=== PATIENT | male | born 1980 ===

== ENCOUNTER 2016-05-22 17:41 | Emergency (ER) | payer OTHER ==
[2016-05-22 17:46] VITALS: BP 136/73; PULSE 72; RESP 18; TEMP 97.9; O2SAT 99
--- NOTE | 2016-05-22 18:41 | C.PDOC ---
History Of Present Illness L LEG PAIN X 2 WEEKS. NO TRAUMA. CO SWELLING INSIDE OF L KNEE X 5 DAYS. WORSE W HYPERFLEX. ALSO PAIN TO L GROIN/TEST AREA. NO RASH, SWELL, UTI SX, FEVER NV. HO L SCROTAL VARICOCELE SURGERY EXAM NAD NEG HERNIA, SCROTAL SWELL, LESIONS. EXT POSSIBLE PHLEBITIS VS PALP CORD L MEDIAL KNEE/DISTAL THIGH NO ERYTHEMA; NO THIGH SWELL MDM ADVISED RETURN TOMORROW FOR DVT STUDY. LOVENOX, NSAID, Time Seen by Provider: 05/22/16 18:02 Chief Complaint (Nursing): Lower Extremity Problem/Injury History Per: Patient History/Exam Limitations: no limitations Onset/Duration Of Symptoms: Days Current Symptoms Are (Timing): Still Present Recent travel outside of the [place]: No Past Medical History Reviewed: Historical Data, Nursing Documentation, Vital Signs Vital Signs: Last Vital Signs Temp 97.9 F 05/22/16 17:44 Pulse 72 05/22/16 17:44 Resp 18 05/22/16 17:44 BP 136/73 05/22/16 17:44 Pulse Ox 99 05/22/16 18:45 - Medical History PMH: No Chronic Diseases Family History: States: Unknown Family Hx - Social History Hx Alcohol Use: No Hx Substance Use: No Review Of Systems Except As Marked, All Systems Reviewed And Found Negative. Constitutional: Negative for: Fever, Chills Cardiovascular: Negative for: Chest Pain Respiratory: Negative for: Cough, Shortness of Breath, Wheezing Musculoskeletal: Positive for: Leg Pain (LEFT) Skin: Negative for: Rash Neurological: Negative for: Weakness, Numbness Physical Exam - Physical Exam Appears: Non-toxic, No Acute Distress Skin: Normal Color, Warm, Dry Head: Atraumatic, Normacephalic Chest: Symmetrical Cardiovascular: Rhythm Regular, No Murmur Respiratory: Normal Breath Sounds, No Rales, No Rhonchi, No Wheezing Male Genital: Other (NEG HERNIA, SCROTAL SWELL, LESIONS.) Extremity: Normal ROM, Capillary Refill (< 2 SEC. ), No Deformity, Other (EXT POSSIBLE PHLEBITIS VS PALP CORD L MEDIAL KNEE/DISTAL THIGH NO ERYTHEMA; NO THIGH SWELL) Neurological/Psych: Oriented x3, Normal Speech, Normal Cognition, Normal Motor, Normal Sensation Gait: Steady ED Course And Treatment O2 Sat by Pulse Oximetry: 99 (RA) Pulse Ox Interpretation: Normal Medical Decision Making Medical Decision Making: ADVISED RETURN TOMORROW FOR DVT STUDY. LOVENOX, NSAID, Disposition Counseled Patient/Family Regarding: Diagnosis, Need For Followup - Disposition [facility]errals: [facility] [Outside] [facility] [Outside] [facility] [Provider Group] Disposition: HOME/ ROUTINE Disposition Time: 18:41 Condition: IMPROVED Additional Instructions: VUELVE A MAANA PARA EL ESTUDIO DE DOPPLER PARA POSIBLES PIERNAS DE DANIEL DE PIERNA. HELADO A LA GEENA AFECTADA, MADELINE MOTRIN SEGN LO DIRIGIDO. Prescriptions: Ibuprofen [Motrin] 600 mg PO Q6 #30 tab Instructions: Superficial Thrombophlebitis (ED), Deep Venous Thrombosis (ED), Groin Strain (ED) Forms: Work Excuse Print Language: URUGUAYAN - Clinical Impression Clinical Impression: Thigh pain, Groin pain - Scribe Statement The provider has reviewed the documentation as recorded by the Meg Del Rio Provider Attestation: All medical record entries made by the Meg were at my direction and personally dictated by me. I have reviewed the chart and agree that the record accurately reflects my personal performance of the history, physical exam, medical decision making, and the department course for this patient. I have also personally directed, reviewed, and agree with the discharge instructions and disposition.
[2016-05-22] MEDS ORDERED: Enoxaparin 40 mg Syringe SC STA (18:45)
[2016-05-22] MEDS ORDERED: Enoxaparin 80 mg Syringe ONE (18:48)
== END 2016-05-22 19:01 | disposition home or self-care (01) ==
LOC: C.ER 17:41
DX: M79.652 Pain in left thigh (principal); R10.32 Left lower quadrant pain

== ENCOUNTER 2016-05-23 09:01 | Emergency (ER) | payer OTHER ==
[2016-05-23 09:33] VITALS: TEMP 98; O2SAT 98
--- NOTE | 2016-05-23 09:51 | C.PDOC ---
History Of Present Illness 35 year old male presents to the ED for a venous doppler exam. Patient states he came last night due to several days of left leg pain and was diagnosed with a superficial phlebitis. He was advised to return for the doppler exam and has no new complaints at this time. Time Seen by Provider: 05/23/16 09:50 Chief Complaint (Nursing): Medical Clearance History Per: Patient History/Exam Limitations: no limitations Onset/Duration Of Symptoms: Days Current Symptoms Are (Timing): Still Present Severity: Mild Past Medical History Reviewed: Historical Data, Nursing Documentation, Vital Signs Vital Signs: Last Vital Signs Temp 98 F 05/23/16 09:30 Pulse 71 05/23/16 11:09 Resp 18 05/23/16 11:09 BP 128/75 05/23/16 11:09 Pulse Ox 98 05/23/16 13:19 - Medical History PMH: No Chronic Diseases Family History: States: Unknown Family Hx - Social History Hx Alcohol Use: No Hx Substance Use: No Review Of Systems Except As Marked, All Systems Reviewed And Found Negative. Constitutional: Negative for: Fever, Chills Musculoskeletal: Positive for: Leg Pain (+Left leg pain). Negative for: Back Pain Skin: Negative for: Rash Neurological: Negative for: Weakness, Numbness Physical Exam - Physical Exam Appears: Non-toxic, No Acute Distress Skin: Normal Color, Warm, Dry Extremity: Normal ROM, No Calf Tenderness, Capillary Refill (< 2 seconds), No Deformity, Swelling (+Slight swelling to the left leg with a palpable cord to the medial aspect of the left knee.) Pulses: Left Dorsalis Pedis: Normal, Right Dorsalis Pedis: Normal Neurological/Psych: Oriented x3, Normal Speech, Normal Cognition, Normal Motor, Normal Sensation ED Course And Treatment O2 Sat by Pulse Oximetry: 98 (Room air) Pulse Ox Interpretation: Normal - Other Rad Venous Duplex Scan X-Ray: Viewed By Me, Read By Radiologist Interpretation: IMPRESSION: No evidence of deep or superficial vein thrombosis of the left lower extremity with excellent venous flow. Normal valve function noted of the left side. Normal venous flow noted in the right common femoral vein. Progress Note: Venous Duplex Scan ordered and reviewed. Medical Decision Making Medical Decision Making: Results discusse with pt Plan nsaid clinic f/u Disposition Counseled Patient/Family Regarding: Diagnosis, Need For Followup - Disposition Referrals: [facility] [Outside] Disposition: HOME/ ROUTINE Disposition Time: 10:59 Condition: GOOD Additional Instructions: Start taking the ibuprofen Warm compress to the area Instructions: Superficial Thrombophlebitis (ED) - Clinical Impression Clinical Impression: Superficial phlebitis - Scribe Statement The provider has reviewed the documentation as recorded by the Scribe Linda Portillo. Provider Attestation: All medical record entries made by the Scribe were at my direction and personally dictated by me. I have reviewed the chart and agree that the record accurately reflects my personal performance of the history, physical exam, medical decision making, and the department course for this patient. I have also personally directed, reviewed, and agree with the discharge instructions and disposition.
[2016-05-23 11:10] VITALS: BP 128/75; PULSE 71; RESP 18
--- NOTE | 2016-05-23 11:37 | VASCLAB ---
PROCEDURE: Left Lower Extremity Venous Duplex Exam. HISTORY: Pain and swelling PRIORS: None. TECHNIQUE: Left common femoral, femoral, popliteal and posterior tibial, peroneal and great saphenous veins were evaluated. Flow was assessed with color Doppler, compressibility, assessment of phasic flow and augmentation response. Report prepared by AMIRAH Willis FINDINGS: LEFT: 1. Common Femoral Vein: 1.1. Compressibility - Fully compressible: Thrombus - None : Flow - Phasic: Augmentation -Normal: Reflux - None. 2. Femoral Vein: 2.1. Compressibility - Fully compressible: Thrombus - None: Flow - Phasic: Augmentation -Normal: Reflux - None. 3. Popliteal Vein: 3.1. Compressibility - Fully compressible: Thrombus - None: Flow - Phasic: Augmentation -Normal: Reflux - None. 4. Posterior Tibial Vein: 4.1. Compressibility - Fully compressible: Thrombus - None: Flow - Phasic: Augmentation -Normal: Reflux - None. 5. Peroneal Vein: 5.1. Compressibility - Fully compressible: Thrombus - None: Flow - Phasic: Augmentation -Normal: Reflux - None. 6. Great Saphenous Vein: 6.1. Compressibility - Fully compressible: Thrombus - None: Flow - Phasic: Augmentation - Normal: Reflux - None. OTHER FINDINGS: IMPRESSION: No evidence of deep or superficial vein thrombosis of the left lower extremity with excellent venous flow. Normal valve function noted of the left side. Normal venous flow noted in the right common femoral vein.
== END 2016-05-23 11:15 | disposition home or self-care (01) ==
LOC: C.ER 09:01
DX: I80.02 Phlebitis and thrombophlebitis of superficial vessels of left lower extremity (principal)

== ENCOUNTER 2018-03-09 20:02 | Emergency (ER) | payer BC, OTHER ==
[2018-03-09 20:18] VITALS: RESP 18
--- NOTE | 2018-03-09 20:35 | C.PDOC ---
History Of Present Illness 37 year old male presents to the ER with a complaint of left testicular pain that radiates to LLQ and left CVA. Patient states the pain began gradually at [id number] this morning and worsened tonight. He reports Hx of varicocele surgery in the past. Denies nausea, vomiting, diarrhea, or dysuria. Time Seen by Provider: 03/09/18 20:25 Chief Complaint (Nursing): Male Genitourinary History Per: Patient History/Exam Limitations: no limitations Onset/Duration Of Symptoms: Hrs Current Symptoms Are (Timing): Still Present Quality Of Discomfort: Unable To Describe Associated Symptoms: denies: Nausea, Vomiting, Diarrhea, Urinary Symptoms Alleviating Factors: None Recent travel outside of the [place]: No Past Medical History Reviewed: Historical Data, Nursing Documentation, Vital Signs Vital Signs: Last Vital Signs Temp 99.0 F 03/09/18 20:13 Pulse 78 03/09/18 20:13 Resp 18 03/09/18 20:13 BP 123/81 03/09/18 20:13 Pulse Ox 96 03/09/18 20:13 Family History: States: Unknown Family Hx - Social History Hx Alcohol Use: Yes Hx Substance Use: No - Immunization History Hx Tetanus Toxoid Vaccination: No Hx Influenza Vaccination: No Hx Pneumococcal Vaccination: No Review Of Systems Except As Marked, All Systems Reviewed And Found Negative. Genitourinary: Positive for: Other (Left testicular pain) Physical Exam - Physical Exam Appears: Non-toxic Skin: Normal Color, Warm, Dry Head: Atraumatic, Normacephalic Eye(s): bilateral: Normal Inspection Oral Mucosa: Moist Chest: Symmetrical, No Tenderness Cardiovascular: Rhythm Regular Respiratory: Normal Breath Sounds, No Rales, No Rhonchi, No Wheezing Gastrointestinal/Abdominal: Soft, Tenderness (llq tenderness ) Back: CVA Tenderness (left ) Male Genital: Testicular Tenderness (Left), Other (Uncircumcised. No paraphimosis.) Neurological/Psych: Oriented x3, Normal Speech ED Course And Treatment - Laboratory Results Result Diagrams: 03/09/18 22:36 03/09/18 22:36 O2 Sat by Pulse Oximetry: 96 (Room air) Pulse Ox Interpretation: Normal - CT Scan/US Testicular US Other Rad Studies (CT/US): Read By Radiologist, Radiology Report Reviewed CT/US Interpretation: FINDINGS: RIGHT TESTICLE: The right testicle demonstrates normal doppler waveforms. Right testicle measures 4.4 x 1.9 x 2.6 centimeters. LEFT TESTICLE: The left testicle demonstrates normal Doppler waveforms. Left testicle measures 4.1 x 2.0 x 3.0 cm. EPIDIDYMIDES: There is a small right epididymal head cyst measuring 0.3 x 0.3 x 0.4 centimeters. The right epididymal head measures 1.3 x 1.1 x 0.9 centimeters. The left epididymal head measures 0.8 x 0.9 x 0.7 cm. SCROTUM: No hydrocele, varicocele, or extratesticular mass seen. Unremarkable. MISCELLANEOUS: Post as was demonstrate homogeneous echogenicity. IMPRESSION: 1. Both testicles demonstrate normal Doppler waveforms without evidence for torsion. 2. Both testicles demonstrate homogeneous echogenicity without evidence for mass. 3. No evidence for epididymoorchitis. Medical Decision Making Medical Decision Making: Plan: UA and GC/Chlamydia ordered. Motrin administered. patient resting comfortably, will discharge home to follow up with pmd within 2 days Disposition Counseled Patient/Family Regarding: Studies Performed, Diagnosis, Need For Followup, Rx Given - Disposition Referrals: Jaqui Lu MD [Medical Doctor] - Nia Dorantes MD [Staff Provider] - Disposition: HOME/ ROUTINE Disposition Time: 00:38 Condition: STABLE Additional Instructions: follow up with urology within 2 days call to make an appointment take medications as prescribed return to ER if symptoms worsens or progress Prescriptions: Naproxen [Naprosyn] 500 mg PO BID PRN #16 tab PRN Reason: Pain, Moderate (4-7) Instructions: Acute Abdomen (Belly Pain), Adult (DC) Forms: [facility] (Cambodian), General Discharge Instructions - Clinical Impression Clinical Impression: Testicular pain, left - Scribe Statement The provider has reviewed the documentation as recorded by the Scribjuli Treviño All medical record entries made by the Scribe were at my direction and personally dictated by me. I have reviewed the chart and agree that the record accurately reflects my personal performance of the history, physical exam, medical decision making, and the department course for this patient. I have also personally directed, reviewed, and agree with the discharge instructions and disposition.
[2018-03-09 21:08] LABS: URINE BILIRUBIN NEGATIVE (NEGATIVE); URINE BLOOD NEGATIVE (NEGATIVE); URINE CLARITY Clear (Clear); URINE COLOR Yellow (YELLOW); URINE GLUCOSE (UA) NORMAL (Normal); URINE LEUKOCYTE ESTERASE NEG Leu/uL (Negative); URINE PROTEIN NEGATIVE (NEGATIVE); URINE UROBILINOGEN NORMAL mg/dL (0.2-1.0)
[2018-03-09] MEDS ORDERED: Sodium Chloride 0.9% 1,000 ML IV ONE (22:00)
[2018-03-09 22:39] LABS: BASO % 0.6 % (0.0-2.0); EOS % 0.5 % (0.0-4.0); HEMOGLOBIN 15.1 g/dL (12.0-18.0); LYMPH # 1.5 K/uL (1.0-4.3); LYMPH % 26.3 % (20.0-40.0); MEAN CELL VOLUME 87.9 fL (80.0-94.0); MEAN CORPUSCULAR HEMOGLOBIN 30.2 pg (27.0-31.0); MEAN CORPUSCULAR HGB CONC 34.3 g/dL (33.0-37.0); MEAN PLATELET VOLUME 9.1 fL (7.2-11.7); MONO # 0.8 K/uL (0.0-0.8); MONO % 14.7 % (0.0-10.0); NEUT # 3.2 K/uL (1.8-7.0); NEUT % 57.9 % (50.0-75.0); NRBC % 0.1 % (0.0-2.0); RBC 4.99 Mil/uL (4.40-5.90); RED CELL DISTRIBUTION WIDTH 12.8 % (11.5-14.5); WHITE BLOOD COUNT 5.5 K/uL (4.8-10.8)
[2018-03-09] MEDS ORDERED: Sodium Chloride 0.9% 1,000 ML ONE (22:44)
[2018-03-09] MEDS ORDERED: Iohexol 240 (50 ml) ONE (22:50)
[2018-03-09 22:51] LABS: ALB/GLOB RATIO 1.6 (1.0-2.1); ALBUMIN 4.3 g/dL (3.5-5.0); ALT/SGPT 35 U/L (21-72); AST/SGOT 23 U/L (17-59); BLOOD UREA NITROGEN 16 mg/dL (9-20); CALCIUM 8.6 mg/dl (8.6-10.4); GFR NON-AFRICAN AMERICAN > 60; LIPASE 173 U/L (23-300)
[2018-03-09] MEDS ORDERED: Iohexol 240 (50 ml) PO ONE (22:56)
[2018-03-10 01:30] VITALS: BP 116/80; PULSE 75; TEMP 98.2
--- NOTE | 2018-03-10 10:40 | CT ---
CT abdomen and pelvis HISTORY: Left lower quadrant abdominal pain. COMPARISON: None available. Technique: Multiple contiguous axial images were performed through the abdomen and pelvis without the use of intravenous contrast. Subsequently, sagittal and coronal reformatted images were obtained. This CT exam was performed using one or more of the following dose reduction techniques: Automated exposure control, adjustment of the mA and/or kV according to patient size, and/or use of iterative reconstruction technique. Findings: Lung bases are clear. No pleural or pericardial effusion. The liver is preserved. Contracted gallbladder. Spleen is preserved. Splenule. Adrenal glands are preserved. Pancreas is preserved. Upper abdominal bowel is grossly preserved. Right kidney: No calculi or hydronephrosis. Left Kidney: No calculi or hydronephrosis. Urinary bladder is preserved. Calcified phleboliths in the pelvis. Prostate and seminal vesicles are preserved. Mild thickening and/or underdistention at the level of the splenic flexure of the colon. Clinical correlation. Moderate fecal retention in the right hemicolon. Appendix not well visualized on this study. If there is concern for appendicitis, consider correlation with a contrast-enhanced scan. Few shotty para-aortic and inguinal lymph nodes. Few shotty mesenteric lymph nodes. Tiny fat containing umbilical hernia. Degenerative changes in the spine. Impression: Mild apparent thickening of the splenic flexure of the colon. This may represent mild acute uncomplicated inflammatory and or infectious changes versus underdistention. Clinical correlation. Appendix not well identified on this study. If there is concern for appendicitis, consider correlation with contrast-enhanced scan. Additional findings as above. A preliminary report was generated at 12:35 a.m. on 03/10/[address] Melissa Mcbride from [employer].
[2018-03-10 13:12] VITALS: O2SAT 96
--- NOTE | 2018-03-10 15:18 | US ---
Testicular ultrasound HISTORY: Testicular pain. Comparison: None available. Technique: Real-time sonography was performed through the scrotum. Findings: Right testes: 4.4 x 1.9 x 2.6 centimeters. Normal flow. Homogeneous echotexture. Right epididymis measures 1.2 x 1.1 x 0.9 centimeters. Normal flow. Right epididymal cyst measures 3 x 3 x 4 millimeters. Left testes: 4.1 x 2.0 x 2.9 centimeters. Normal flow. Homogeneous echotexture. Left epididymis measures 9 x 7 x 8 millimeters. Normal flow. Impression: 4 millimeter right epididymal cyst. Otherwise unremarkable sonographic evaluation of the scrotum. A preliminary report was generated at 9:54 p.m. on 03/09/[address] Benjamin Barker from [email or web address].
== END 2018-03-10 01:29 | disposition home or self-care (01) ==
LOC: C.ER 20:02
DX: N50.812 Left testicular pain (principal)
CPT/HCPCS: 74176; 76870; 80053; 81001; 83690; 85025; 87086; 87491; 87591; 96360; 99284; J7030; Q9966